=== PATIENT | female | born 1950 | race Caucasian/White ===

== ENCOUNTER 2017-03-28 06:46 | Observation (INO) | payer MEDICARE ==
[2017-03-28] VITALS (7 sets, daily range): BP systolic 112–135; BP diastolic 54–68; PULSE 53–95; RESP 14–18; TEMP 97.7–98.3; O2SAT 95–99
[~2017-03-28] VITALS: Ht 167.6 cm; Wt 68.8 kg
--- NOTE | 2017-03-28 07:26 | PD ---
HPI Chief Complaint: Injury Time Seen by Provider: 07:18 Travel History International Travel<30 days: No Contact w/Intl Traveler<30days: No Traveled to known affect area: No History of Present Illness HPI 66-year-old female here for evaluation of left fourth toe pain. The patient reports that about 5 days ago she dropped a steel car onto her toe. She reports that it did not bleed at the time of the injury, however he did develop a blister which she broke open and it released blood. She is concerned about possible infection to the toe. Pain is moderate, worse with palpation and movement. PFSH Past Medical History Diminished Hearing: No Tetanus Vaccination: Unknown Influenza Vaccination: No ?: Not Past Surgical History Hysterectomy: Yes Social History Alcohol Use: Yes (occ) Tobacco Use: No Substance Use: No Allergies-Medications (Allergen,Severity, Reaction): Coded Allergies: No Known Allergies (Unverified , 03/28/17) Reported Meds & Prescriptions Reported Meds & Active Scripts Active No Active Prescriptions or Reported Medications Review of Systems Except as stated in HPI: all other systems reviewed are Neg Physical Exam Narrative GENERAL: Well-developed, well-nourished, comfortable, no apparent distress. SKIN: Left fourth toe with diffuse swelling with slight ecchymosis as well as erythema and warmth, no red streaks, no crepitus, small healing abrasion to the dorsum of the toe. CARDIOVASCULAR: Regular rate and rhythm. Bilateral dorsalis pedis pulses are brisk and equal. MUSCULOSKELETAL: Left fourth toe with moderate diffuse swelling with skin exam as above. The left fourth toe is diffusely tender. Rest of the patient's foot and ankle are nontender without swelling or obvious deformity. NEUROLOGICAL: Awake and alert. No obvious cranial nerve deficits. Motor grossly within normal limits. Normal speech. PSYCHIATRIC: Appropriate mood and affect; insight and judgment normal. Data Data Last Documented VS Vital Signs Date Time Temp Pulse Resp B/P Pulse Ox O2 Delivery O2 Flow Rate FiO2 03/28/17 11:20 53 14 135/66 99 Room Air 03/28/17 07:05 98.3 Orders Foot, Complete ([id number]) (03/28/17 ) Basic Metabolic Panel (Bmp) (03/28/17 08:03) Complete Blood Count With Diff (03/28/17 08:03) Prothrombin Time / Inr (Pt) (03/28/17 08:03) Act Partial Throm Time (Ptt) (03/28/17 08:03) Iv Access Insert/Monitor (03/28/17 08:03) Ecg Monitoring (03/28/17 08:03) Oximetry (03/28/17 08:03) Sodium Chloride 0.9% Flush (Ns Flush) (03/28/17 08:15) Westergren Sedimentation Rate (03/28/17 08:03) C-Reactive Protein (Crp) (03/28/17 08:03) Blood Culture (03/28/17 08:03) Mri Foot W&W/O Contrast (03/28/17 ) Gadodiamide Pf Inj (Omniscan Pf Inj) (03/28/17 11:11) Vancomycin Inj (Vancomycin Inj) (03/28/17 11:45) Piperacil-Tazo 3.375 Gm Premix (Zosyn 3. (03/28/17 11:45) Labs Laboratory Tests Test 03/28/17 08:20 White Blood Count 6.8 TH/MM3 Red Blood Count 4.19 MIL/MM3 Hemoglobin 11.6 GM/DL Hematocrit 35.7 % Mean Corpuscular Volume 85.3 FL Mean Corpuscular Hemoglobin 27.8 PG Mean Corpuscular Hemoglobin 32.5 % Concent Red Cell Distribution Width 13.9 % Platelet Count 209 TH/MM3 Mean Platelet Volume 9.2 FL Neutrophils (%) (Auto) 51.4 % Lymphocytes (%) (Auto) 32.9 % Monocytes (%) (Auto) 7.2 % Eosinophils (%) (Auto) 8.1 % Basophils (%) (Auto) 0.4 % Neutrophils # (Auto) 3.6 TH/MM3 Lymphocytes # (Auto) 2.2 TH/MM3 Monocytes # (Auto) 0.5 TH/MM3 Eosinophils # (Auto) 0.5 TH/MM3 Basophils # (Auto) 0.0 TH/MM3 CBC Comment DIFF FINAL Differential Comment Erythrocyte Sedimentation Rate 8 mm/hr Prothrombin Time 10.7 SEC Prothromb Time International 1.0 RATIO Ratio Activated Partial 25.4 SEC Thromboplast Time Sodium Level 141 MEQ/L Potassium Level 3.8 MEQ/L Chloride Level 106 MEQ/L Carbon Dioxide Level 25.7 MEQ/L Anion Gap 9 MEQ/L Blood Urea Nitrogen 17 MG/DL Creatinine 0.65 MG/DL Estimat Glomerular Filtration 91 ML/MIN Rate Random Glucose 95 MG/DL Calcium Level 8.9 MG/DL C-Reactive Protein LESS THAN 0.29 MG/DL MDM Medical Decision Making Medical Screen Exam Complete: Yes Emergency Medical Condition: Yes Differential Diagnosis Toe fracture, subungual hematoma, contusion, cellulitis Narrative Course Vital signs reviewed. Left foot x-ray: CONCLUSION: 1. Soft tissue swelling of the fourth digit with multiple lucencies suggesting subacute fracture. 2. Possibility of underlying osteomyelitis cannot be excluded. Patient was made aware of x-ray findings and of plan for labs and MRI to evaluate for possible osteomyelitis. CBC shows WBC 6.8, hemoglobin 11.6, hematocrit 35.7, platelets 209. BMP is unremarkable. ESR is 8 CRP less than 0.29 MRI left foot: CONCLUSION: Complete marrow replacement of the fourth distal phalangeal bone with some surrounding soft tissue edema. The marrow replacement concerning if not diagnostic for osteomyelitis. ADDENDUM: I received more clinical history. The patient had a defined trauma without any open injury. The amount of bony edema in marrow placement certainly could be related to just a fracture. Without the open wound obviously infection would be much less likely. Discussed case with Dr Rojo. Case discussed with on-call auto body customizer Dr. Sheth. Patient will be admitted for IV antibiotics. He will see the patient in consultation. Patient made aware of all findings and plan for admission. She is amenable to this plan. Case discussed with hospitalist Dr. Newton will admit the patient to her service. Diagnosis Primary Impression: Toe osteomyelitis, left Admitting Information Admitting Physician Requests: Admit Scripts No Active Prescriptions or Reported Meds Ramin Rojo MD Mar 28, 2017 07:26
--- NOTE | 2017-03-28 07:54 | RADRPT ---
EXAM DATE/TIME: 03/28/2017 07:35 [facility] COMPARISON: No previous studies available for comparison. INDICATIONS : Left 4th digit pain and swelling, dropped a metal bar on foot 4 days ago. MEDICAL HISTORY : None. SURGICAL HISTORY : None. ENCOUNTER: Initial ACUITY: 4 - 6 days PAIN SCORE: 8/10 LOCATION: Left 4th digit FINDINGS: Three view examination of the left foot demonstrates soft tissue swelling the fourth digit. There are lucencies involving the distal phalanx suggesting fracture. No other abnormality. Scattered degenera tive changes in the foot. The calcaneus is intact. Bony mineralization is normal. CONCLUSION: 1. Soft tissue swelling of the fourth digit with multiple lucencies suggesting subacute fracture. 2. Possibility of underlying osteomyelitis cannot be excluded. Arun Shi MD on March 28, 2017 at 7:51 Board Certified Radiologist. This report was verified electronically.
[2017-03-28] MEDS ORDERED: SODIUM CHLORIDE 0.9% FLUSH 10 ML FLUSH IV FLUSH PRN (08:15)
[2017-03-28 08:49] LABS: AUTOMATED NEUTROPHIL # 3.6 TH/MM3 (1.8-7.7); BASOPHIL % 0.4 % (0.0-2.0); EOSINOPHIL # 0.5 TH/MM3 (0-0.4); EOSINOPHIL % 8.1 % (0.0-4.0); HEMATOCRIT 35.7 % (35.0-46.0); HEMO FLAGS DIFF FINAL; LYMPH % 32.9 % (9.0-44.0); LYMPHOCYTE # 2.2 TH/MM3 (1.0-4.8); MEAN CELL VOLUME 85.3 FL (80.0-100.0); MEAN CORPUSCULAR HEMOGLOBIN 27.8 PG (27.0-34.0); MEAN CORPUSCULAR HGB CONC 32.5 % (32.0-36.0); MONO % 7.2 % (0.0-8.0); NEUT % 51.4 % (16.0-70.0); PLATELET COUNT 209 TH/MM3 (150-450); RED BLOOD COUNT 4.19 MIL/MM3 (4.00-5.30); RED CELL DISTRIBUTION WIDTH 13.9 % (11.6-17.2); WHITE BLOOD COUNT 6.8 TH/MM3 (4.0-11.0)
[2017-03-28 08:59] LABS: CHLORIDE 106 MEQ/L (98-107); POTASSIUM 3.8 MEQ/L (3.5-5.1); SODIUM (NA) 141 MEQ/L (136-145)
[2017-03-28 09:01] LABS: ANION GAP 9 MEQ/L (5-15); APTT (PATIENT) 25.4 SEC (24.3-30.1); BICARBONATE 25.7 MEQ/L (21.0-32.0); BLOOD UREA NITROGEN 17 MG/DL (7-18); PROTHROMBIN TIME - PATIENT 10.7 SEC (9.8-11.6)
[2017-03-28 09:04] LABS: GLOMERULAR FILTRATION RATE 91 ML/MIN (>89)
[2017-03-28] MEDS ORDERED: GADODIAMIDE PF 287 MG/ML 5 ML VIAL (for RAD MRI) IV ONE (11:11)
--- NOTE | 2017-03-28 11:15 | RADRPT ---
EXAM DATE/TIME: 03/28/2017 10:23 This report includes an Addendum and supersedes previous reports for this exam. [facility] COMPARISON: No previous studies available for comparison. INDICATIONS : Osteomyelitis. Redness and swelling tip of 4th toe after dropping padilla on foot. CONTRAST: 14 cc Omniscan (gadodiamide) IV MEDICAL HISTORY : None. SURGICAL HISTORY : Hysterectomy. ENCOUNTER: Initial ACUITY: 3 day PAIN SCORE: 6/10 LOCATION: Left foot TECHNIQUE: Multiplanar, multisequence MRI examination was performed without contrast and after the intravenous a dministration of gadolinium. FINDINGS: BONE/CARTILAGE: There is complete marrow replacement of the fourth distal phalangeal.. Articular cartilage signal is within normal limits. Some edema in the medial sesamoid bone possible sesamoiditis. TENDONS: All of the visualized tendons are intact. MISCELLANEOUS: Plantar aponeurosis is intact. Sinus tarsi is within normal limits. POST-CONTRAST: There is marked enhancement of swelling around the fourth toe. CONCLUSION: Complete marrow replacement of the fourth distal phalangeal bone with some surrounding soft tissue ed segun. The marrow replacement concerning if not diagnostic for osteomyelitis. Albert Lemon MD on March 28, 2017 at 11:10 Board Certified Radiologist. This report was verified electronically. ADDENDUM: I received more clinical history. The patient had a defined trauma without any open injury. The amou nt of bony edema in marrow placement certainly could be related to just a fracture. Without the open wound obviously infection would be much less likely. Discussed case with Dr Rojo. Albert Lemon MD on March 28, 2017 at 11:30 Board Certified Radiologist. This report was verified electronically.
[2017-03-28] MEDS ORDERED: VANCOMYCIN INJ 1,000 MG in SODIUM CHLOR 0.9% 250 ML INJ 250 ML IV ONE (11:45)
[2017-03-28] MEDS ORDERED: PIPERACIL-TAZO 3.375 GM PREMIX 50 ML IV ONE (11:45)
[2017-03-28] MEDS ORDERED: ACETAMINOPHEN 325 MG TAB PO PRN (12:45)
--- NOTE | 2017-03-28 14:44 | HHI.HP ---
HPI Service [facility] Primary Care Physician Manjinder Cook, DO Admission Diagnosis left fourth toe injury, rule out osteomyelitis Diagnoses: Chief Complaint: Left fourth toe injury Travel History International Travel<30 Days: No Contact w/Intl Traveler <30 Da: No Traveled to Known Affected Are: No History of Present Illness This patient is a 66-year-old female with minimal past history who dropped a still leti on her toe 5 days ago. She had significant black and blue cleaning of the foot and of the toe however the fourth toe has continued to enlarge and has become quite erythematous and edematous. The pain is moderate and worse with ambulation and worse with trying to move the foot. There is been no fevers or chills. There is no open cleaning on the foot and in fact the previous ecchymotic area has all but healed completely. The patient has never had any bone infection and is not a diabetic. She did have significant bony changes on MRI which could represent osteomyelitis although unlikely and more likely a fracture in various stages of healing. Patient has been recommended by podiatry for further observation due to the significant changes in the foot. Review of Systems Constitutional: DENIES: Diaphoretic episodes, Fatigue, Fever, Weight gain, Weight loss, Chills, Dizziness, Change in appetite, Night Sweats Endocrine: DENIES: Abnorml menstrual pattern, Heat/cold intolerance, Polydipsia , Polyuria, Polyphagia Eyes: DENIES: Blurred vision, Diplopia, Eye inflammation, Eye pain, Vision loss , Photosensitivity, Double Vision Ears, nose, mouth, throat: DENIES: Tinnitus, Hearing loss, Vertigo, Nasal discharge, Oral lesions, Throat pain, Hoarseness, Ear Pain, Running Nose, Epistaxis, Sinus Pain, Toothache, Odynophagia Respiratory: DENIES: Apneas, Cough, Snoring, Wheezing, Hemoptysis, Sputum production, Shortness of breath Cardiovascular: DENIES: Chest pain, Palpitations, Syncope, Dyspnea on Exertion , PND, Lower Extremity Edema, Orthopnea, Claudication Gastrointestinal: DENIES: Abdominal pain, Black stools, Bloody stools, Constipation, Diarrhea, Nausea, Vomiting, Difficulty Swallowing, Anorexia Genitourinary: DENIES: Abnormal vaginal bleeding, Dysmenorrhea, Dyspareunia, Sexual dysfunction, Urinary frequency, Urinary incontinence, Urgency, Hematuria , Dysuria, Nocturia, Vaginal discharge Musculoskeletal: COMPLAINS OF: Joint pain, Joint Swelling Integumentary: DENIES: Abnormal pigmentation, Pruritus, Rash, Nail changes, Breast masses, Breast skin changes, Nipple discharge Immunologic/allergic: DENIES: Eczema, Urticaria Neurologic: DENIES: Abnormal gait, Headache, Localized weakness, Paresthesias, Seizures, Speech Problems, Tremor, Poor Balance Psychiatric: DENIES: Anxiety, Confusion, Mood changes, Depression, Hallucinations, Agitation, Suicidal Ideation, Homicidal Ideation, Delusions Past Family Social History Past Medical History Denies Past Surgical History Hysterectomy Reported Medications Denies Allergies: Coded Allergies: No Known Allergies (Unverified , 03/28/17) Active Ordered Medications Reviewed in the medical record Family History Hypertension Social History No tobacco, lives with her , occasional alcohol Physical Exam Vital Signs Vital Signs Date Time Temp Pulse Resp B/P Pulse Ox O2 Delivery O2 Flow Rate FiO2 03/28/17 14:10 95 16 114/55 95 Room Air 03/28/17 11:20 53 14 135/66 99 Room Air 03/28/17 08:35 16 99 Room Air 03/28/17 07:30 16 99 Room Air 03/28/17 07:05 98.3 60 16 133/68 98 Room Air 03/28/17 06:53 98.3 60 18 98 Physical Exam GENERAL: This is a well-nourished, well-developed patient, in no apparent distress. SKIN: No rashes, ecchymoses or lesions. Cool and dry. HEAD: Atraumatic. Normocephalic. No temporal or scalp tenderness. EYES: Pupils equal round and reactive. Extraocular motions intact. No scleral icterus. No injection or drainage. ENT: Nose without bleeding, purulent drainage or septal hematoma. Throat without erythema, tonsillar hypertrophy or exudate. Uvula midline. Airway patent. NECK: Trachea midline. No JVD or lymphadenopathy. Supple, nontender, no meningeal signs. CARDIOVASCULAR: Regular rate and rhythm without murmurs, gallops, or rubs. RESPIRATORY: Clear to auscultation. Breath sounds equal bilaterally. No wheezes , rales, or rhonchi. GASTROINTESTINAL: Abdomen soft, non-tender, nondistended. No hepato-splenomegaly , or palpable masses. No guarding. MUSCULOSKELETAL: Left fourth toe with significant erythema and edema decreased mobility, other Extremities without clubbing, cyanosis, or edema. No joint tenderness, effusion, or edema noted. No calf tenderness. Negative Homans sign bilaterally. NEUROLOGICAL: Awake and alert. Cranial nerves II through XII intact. Motor and sensory grossly within normal limits. Five out of 5 muscle strength in all muscle groups. Normal speech. Laboratory Laboratory Tests Test 03/28/17 08:20 White Blood Count 6.8 Red Blood Count 4.19 Hemoglobin 11.6 Hematocrit 35.7 Mean Corpuscular Volume 85.3 Mean Corpuscular Hemoglobin 27.8 Mean Corpuscular Hemoglobin 32.5 Concent Red Cell Distribution Width 13.9 Platelet Count 209 Mean Platelet Volume 9.2 Neutrophils (%) (Auto) 51.4 Lymphocytes (%) (Auto) 32.9 Monocytes (%) (Auto) 7.2 Eosinophils (%) (Auto) 8.1 Basophils (%) (Auto) 0.4 Neutrophils # (Auto) 3.6 Lymphocytes # (Auto) 2.2 Monocytes # (Auto) 0.5 Eosinophils # (Auto) 0.5 Basophils # (Auto) 0.0 CBC Comment DIFF FINAL Differential Comment Erythrocyte Sedimentation Rate 8 Prothrombin Time 10.7 Prothromb Time International 1.0 Ratio Activated Partial 25.4 Thromboplast Time Sodium Level 141 Potassium Level 3.8 Chloride Level 106 Carbon Dioxide Level 25.7 Anion Gap 9 Blood Urea Nitrogen 17 Creatinine 0.65 Estimat Glomerular Filtration 91 Rate Random Glucose 95 Calcium Level 8.9 C-Reactive Protein LESS THAN 0.29 Date/Time Procedure Status Source Growth 03/28/17 08:25 Aerobic Blood Culture Received Blood Peripheral Pending 03/28/17 08:25 Anaerobic Blood Culture Received Blood Peripheral Pending Result Diagram: 03/28/1781903/28/17819 Imaging Last Impressions Foot X-Ray 03/28/17 0000 Signed Impressions: Service Date/Time: Tuesday, March 28, 2017 07:35 - CONCLUSION: 1. Soft tissue swelling of the fourth digit with multiple lucencies suggesting subacute fracture. 2. Possibility of underlying osteomyelitis cannot be excluded. Arun Shi MD Foot MRI 03/28/17 0000 Signed Impressions: Service Date/Time: Tuesday, March 28, 2017 10:23 - CONCLUSION: Complete marrow replacement of the fourth distal phalangeal bone with some surrounding soft tissue edema. The marrow replacement concerning if not diagnostic for osteomyelitis. Albert Lemon MD ADDENDUM: I received more clinical history. The patient had a defined trauma without any open injury. The amount of bony edema in marrow placement certainly could be related to just a fracture. Without the open wound obviously infection would be much less likely. Discussed case with Dr Rojo. Albert Lemon MD Assessment and Plan Problem List: (1) Toe injury ICD Code: S99.929A Status: Acute Plan: Likely MRI findings aren't related to injury and not a true infection. We'll continue with empiric antibiotics overnight and follow clinically Podiatry consult pending Patient's pain is well-controlled Assessment and Plan Plan of care to be determined by Hospital course Code Status Full code Discussed Condition With Patient, Evelyne Felix M.D., MD Mar 28, 2017 14:44
[2017-03-28] MEDS ORDERED: VANCOMYCIN INJ 1,000 MG in SODIUM CHLOR 0.9% 250 ML INJ 250 ML IV SCH (14:45)
[2017-03-28] MEDS ORDERED: Vancomycin Consult Pharmacy 1 EA OTHER SCH (16:00)
[2017-03-28] MEDS ORDERED: cefTRIAXone INJ 1,000 MG in SODIUM CHLORIDE 0.9% INJ 100 ML IV SCH (16:00)
--- NOTE | 2017-03-28 19:43 | MB ---
cc: EPI NIEVES DPM DATE OF CONSULTATION 03/28/2017 REASON FOR CONSULTATION Left fourth toe infection, possible osteomyelitis versus fracture. HISTORY OF THE PRESENT ILLNESS This is a 66-year-old female who dropped a weight on her foot approximately 5-7 days ago. She had some black and blue but it became more red and she became very worrisome. She presented to the ED and she was worked up appropriately. It was the determination that she may have a cellulitic versus an osteomyelitic event. Currently I am seeing the patient bedside. She has noted significant improvement upon just receiving one dose of antibiotic. She denies any puncture wound to the area. PAST MEDICAL HISTORY None listed although she has a surgical history of hysterectomy. MEDICATIONS Reported medications, none listed. ALLERGIES None. FAMILY HISTORY Hypertension. SOCIAL HISTORY No tobacco. She lives with her . Occasional alcohol. INPATIENT MEDICATIONS: She is receivin. Vancomycin. 2. Ceftriaxone. 3. And apparently Zosyn. PHYSICAL EXAMINATION VITAL SIGNS: Temperature 98.3, pulse rate 61, respiratory rate 16, blood pressure 112/54. She is sating 98% on room air. GENERAL: This is an alert and oriented female seen bedside exhibiting nonlabored respirations. She is verbal, appropriate. EXTREMITIES: The left lower extremity is examined. There is noted to be erythema that is isolated to the distal tip of the fourth digit. It appears to be without fluctuance. There is mild pain. There is no crepitus or instability. There is no open or draining wound. Pedal pulses are fully palpable. Sensation is intact. Contralateral extremity is noted to be free from any obvious pathology. LABORATORY FINDINGS White blood cell 6.8. Hemoglobin/hematocrit 11/35. Platelet count is 209. ESR is 8. Chem-7, sodium 141, potassium 3.8, chloride 106, CO2 is 25.7, BUN is 17, creatinine 0.65, random glucose is 95. C-reactive protein is less than 0.29. IMAGING Imaging findings, there is noted to be complete marrow replacement of the distal phalanx. It appears to correlate more clinically with a fracture as opposed to osteomyelitis. X-ray findings are similar. ASSESSMENT/PLAN Left fourth digit distal phalanx fracture with possible cellulitis. I reviewed in great detail the studies and the laboratory findings. The patient likely had a cellulitic event that appears to be improving. My recommendation is 24 hours of antibiotics IV and if there is significant improvement by noon tomorrow, I am recommending DC on empiric antibiotics such as Clindamycin and Cipro and to follow up outpatient in the clinic. I do not feel the patient needs bone biopsy or any advanced surgical procedure to determine the extent of infection. Please feel free to discharge in a.m. if the patient's clinical findings improve. DENISE Ibrahim/VALERIE /5:51 PM /8:06 AM
[2017-03-29] VITALS: BP 106/64; PULSE 74; RESP 16; TEMP 97.8; O2SAT 98
[2017-03-29] MEDS ORDERED: VANCOMYCIN INJ 1,400 MG in SODIUM CHLORID 0.9% 500 ML INJ 500 ML IV SCH (02:00)
[2017-03-29 06:20] LABS: AUTOMATED NEUTROPHIL # 2.9 TH/MM3 (1.8-7.7); BASOPHIL % 0.6 % (0.0-2.0); EOSINOPHIL # 0.7 TH/MM3 (0-0.4); EOSINOPHIL % 10.3 % (0.0-4.0); HEMATOCRIT 34.2 % (35.0-46.0); HEMO FLAGS DIFF FINAL; LYMPHOCYTE # 2.6 TH/MM3 (1.0-4.8); MEAN CELL VOLUME 85.6 FL (80.0-100.0); MEAN CORPUSCULAR HEMOGLOBIN 27.5 PG (27.0-34.0); MEAN CORPUSCULAR HGB CONC 32.2 % (32.0-36.0); MONO % 6.7 % (0.0-8.0); NEUT % 42.4 % (16.0-70.0); PLATELET COUNT 204 TH/MM3 (150-450); RED BLOOD COUNT 3.99 MIL/MM3 (4.00-5.30); RED CELL DISTRIBUTION WIDTH 13.9 % (11.6-17.2); WHITE BLOOD COUNT 6.6 TH/MM3 (4.0-11.0)
[2017-03-29 06:28] LABS: POTASSIUM 4.3 MEQ/L (3.5-5.1)
[2017-03-29 06:32] LABS: BICARBONATE 28.3 MEQ/L (21.0-32.0)
--- NOTE | 2017-03-29 06:41 | PD.POD.CON ---
Patient Intake Consult Requested by Primary Care Physician Manjinder Cook, DO Coded Allergies: No Known Allergies (Unverified , 03/28/17) Vital Signs Date Time Temp Pulse Resp B/P Pulse Ox O2 Delivery O2 Flow Rate FiO2 03/29/17 00:00 97.8 74 16 106/64 98 03/28/17 20:00 97.7 62 18 112/68 98 03/28/17 15:45 61 16 112/54 98 Room Air 03/28/17 14:10 95 16 114/55 95 Room Air 03/28/17 11:20 53 14 135/66 99 Room Air 03/28/17 08:35 16 99 Room Air 03/28/17 07:30 16 99 Room Air 03/28/17 07:05 98.3 60 16 133/68 98 Room Air 03/28/17 06:53 98.3 60 18 98 Lab and Radiology Results Radiology Last Impressions Foot X-Ray 03/28/17 0000 Signed Impressions: Service Date/Time: Tuesday, March 28, 2017 07:35 - CONCLUSION: 1. Soft tissue swelling of the fourth digit with multiple lucencies suggesting subacute fracture. 2. Possibility of underlying osteomyelitis cannot be excluded. Arun Shi MD Foot MRI 03/28/17 0000 Signed Impressions: Service Date/Time: Tuesday, March 28, 2017 10:23 - CONCLUSION: Complete marrow replacement of the fourth distal phalangeal bone with some surrounding soft tissue edema. The marrow replacement concerning if not diagnostic for osteomyelitis. Albert Lemon MD ADDENDUM: I received more clinical history. The patient had a defined trauma without any open injury. The amount of bony edema in marrow placement certainly could be related to just a fracture. Without the open wound obviously infection would be much less likely. Discussed case with Dr Rojo. Albert Lemon MD Assessment/Plan Additional Plans & Procedures FULL CONSULT WAS DICTATED- Checked to sign this AM and was blank- I will look into belt fixer. Left 4th digit distal phalanx fx with cellulitis. IV ABX over night, doubt OM. If redness improved by AM, DC on Cipro/ Cleocin and FU outpt. Dr Mccarty to check this AM. Elian Sheth DPM Mar 29, 2017 06:41
[2017-03-29 08:00] VITALS: BP 116/71; PULSE 57; RESP 18; TEMP 96.5; O2SAT 97
--- NOTE | 2017-03-29 08:31 | PD.POD ---
Subjective Podiatric Problems Left 4th digit fracture with cellulitis. Pain scale used: 0-10 numeric scale Pain score: 1 Past Med/Surg/Social History Social History Smoking Status: Never Smoker Objective Vital Signs Vital Signs Date Time Temp Pulse Resp B/P Pulse Ox O2 Delivery O2 Flow Rate FiO2 03/29/17 00:00 97.8 74 16 106/64 98 03/28/17 20:00 97.7 62 18 112/68 98 03/28/17 15:45 61 16 112/54 98 Room Air 03/28/17 14:10 95 16 114/55 95 Room Air 03/28/17 11:20 53 14 135/66 99 Room Air 03/28/17 08:35 16 99 Room Air Coded Allergies: No Known Allergies (Unverified , 03/28/17) Other Results Laboratory Tests Test 03/28/17 03/29/17 08:20 04:57 Erythrocyte Sedimentation Rate 8 mm/hr Prothrombin Time 10.7 SEC Prothromb Time International 1.0 RATIO Ratio Activated Partial 25.4 SEC Thromboplast Time C-Reactive Protein LESS THAN 0.29 MG/DL White Blood Count 6.6 TH/MM3 Red Blood Count 3.99 MIL/MM3 Hemoglobin 11.0 GM/DL Hematocrit 34.2 % Mean Corpuscular Volume 85.6 FL Mean Corpuscular Hemoglobin 27.5 PG Mean Corpuscular Hemoglobin 32.2 % Concent Red Cell Distribution Width 13.9 % Platelet Count 204 TH/MM3 Mean Platelet Volume 9.3 FL Neutrophils (%) (Auto) 42.4 % Lymphocytes (%) (Auto) 40.0 % Monocytes (%) (Auto) 6.7 % Eosinophils (%) (Auto) 10.3 % Basophils (%) (Auto) 0.6 % Neutrophils # (Auto) 2.9 TH/MM3 Lymphocytes # (Auto) 2.6 TH/MM3 Monocytes # (Auto) 0.4 TH/MM3 Eosinophils # (Auto) 0.7 TH/MM3 Basophils # (Auto) 0.0 TH/MM3 CBC Comment DIFF FINAL Differential Comment Sodium Level 145 MEQ/L Potassium Level 4.3 MEQ/L Chloride Level 110 MEQ/L Carbon Dioxide Level 28.3 MEQ/L Anion Gap 7 MEQ/L Blood Urea Nitrogen 13 MG/DL Creatinine 0.66 MG/DL Estimat Glomerular Filtration 89 ML/MIN Rate Random Glucose 86 MG/DL Calcium Level 8.5 MG/DL Exam-Podiatry Dermatological Exam Ulcers: Location/Measurements LLE Left 4th digit, reduced erythema, no drainage. No pain with ROM. NVS intact. Assessment & Plan Diagnosis: (1) Toe injury Status: Acute A/P Reduced erythema. Doing well OK to d/c home with post op shoes. OK with Cipro 250 bid x 10 days. OK with Clindamycin 150 bid x 10 days. OK to WB. F/U with Dr Sheth on 04/01/17 Romana Mccarty DPM Mar 29, 2017 08:30
[2017-03-29] MEDS ORDERED: PNEUMOCOCCAL POLYVALENT INJ 25 MCG/0.5 ML SYR IM ONE (10:00)
--- NOTE | 2017-03-29 10:25 | HHI.DCPOC ---
Discharge Care Plan Diagnosis: (1) Toe injury Goals to Promote Your Health * To prevent worsening of your condition and complications * To maintain your health at the optimal level Directions to Meet Your Goals Take your medications as prescribed Follow your dietary instruction Follow activity as directed Keep your appointments as scheduled Take your immunizations and boosters as scheduled If your symptoms worsen call your PCP, if no PCP go to Urgent Care Center or Emergency Room Smoking is Dangerous to Your Health. Avoid second hand smoke Call the 24-hour hour crisis hotline for domestic abuse at Evelyne Newton MD Mar 29, 2017 10:25
[2017-03-29] MEDS ORDERED: CIPR250T52 PO (10:29)
[2017-03-29] MEDS ORDERED: CLIN1CAP5 PO (10:29)
--- NOTE | 2017-03-29 10:29 | HHI.DS ---
Discharge Summary Admission Date Mar 28, 2017 at 12:06 Discharge Date: Mar 29, 2017 Admitting Diagnosis left fourth toe injury, rule out osteomyelitis (1) Toe injury ICD Code: S99.929A Procedures none Brief History - From Admission This patient is a 66-year-old female with minimal past history who dropped a still leti on her toe 5 days ago. She had significant black and blue cleaning of the foot and of the toe however the fourth toe has continued to enlarge and has become quite erythematous and edematous. The pain is moderate and worse with ambulation and worse with trying to move the foot. There is been no fevers or chills. There is no open cleaning on the foot and in fact the previous ecchymotic area has all but healed completely. The patient has never had any bone infection and is not a diabetic. She did have significant bony changes on MRI which could represent osteomyelitis although unlikely and more likely a fracture in various stages of healing. Patient has been recommended by podiatry for further observation due to the significant changes in the foot. CBC/BMP: 03/29/17 0457 03/29/17 0457 Significant Findings Laboratory Tests Test 03/28/17 03/29/17 08:20 04:57 Eosinophils (%) (Auto) 8.1 % (0.0-4.0) 10.3 % (0.0-4.0) Eosinophils # (Auto) 0.5 TH/MM3 0.7 TH/MM3 (0-0.4) (0-0.4) Red Blood Count 3.99 MIL/MM3 (4.00-5.30) Hemoglobin 11.0 GM/DL (11.6-15.3) Hematocrit 34.2 % (35.0-46.0) Chloride Level 110 MEQ/L (98-107) Imaging Last Impressions Foot X-Ray 03/28/17 0000 Signed Impressions: Service Date/Time: Tuesday, March 28, 2017 07:35 - CONCLUSION: 1. Soft tissue swelling of the fourth digit with multiple lucencies suggesting subacute fracture. 2. Possibility of underlying osteomyelitis cannot be excluded. Arun Shi MD Foot MRI 03/28/17 0000 Signed Impressions: Service Date/Time: Tuesday, March 28, 2017 10:23 - CONCLUSION: Complete marrow replacement of the fourth distal phalangeal bone with some surrounding soft tissue edema. The marrow replacement concerning if not diagnostic for osteomyelitis. Albert Lemon MD ADDENDUM: I received more clinical history. The patient had a defined trauma without any open injury. The amount of bony edema in marrow placement certainly could be related to just a fracture. Without the open wound obviously infection would be much less likely. Discussed case with Dr Rojo. Albert Lemon MD PE at Discharge GENERAL: This is a well-nourished, well-developed patient, in no apparent distress. CARDIOVASCULAR: Regular rate and rhythm without murmurs, gallops, or rubs. RESPIRATORY: Clear to auscultation. Breath sounds equal bilaterally. No wheezes , rales, or rhonchi. GASTROINTESTINAL: Abdomen soft, non-tender, nondistended. Normal active bowel sounds MUSCULOSKELETAL: erythema in toe unchanged. Extremities without clubbing, cyanosis, or edema. NEURO: Alert & Oriented x4 to person, place, time, situation. Moves all ext x4 Pt update on day of discharge Patient seen today in follow-up for left fourth digit injury and erythema. No new complaints today. Podiatry evaluation appreciated. Patient will continue with antibiotics and outpatient follow-up Hospital Course Patient is a 66-year-old female was evaluated for left toe injury and had some residual erythema and swelling. Images were concerning for osteomyelitis however patient does not appear to have osteomyelitis but severe toe injury. Continue with antibiotics empirically and follow for outpatient management per podiatry Pt Condition on Discharge: Good Discharge Disposition: Discharge Home Discharge Time: > 30 minutes Discharge Instructions Follow up Referrals: Podiatry - 04/01/17 with Elian Sheth DPM New Medications: Ciprofloxacin (Cipro) 250 Mg Tab 250 MG PO BID Infection #20 Ref 0 TAB Clindamycin (Clindamycin) 150 Mg Cap 150 MG PO BID Infection #20 Ref 0 Evelyne Pettit MD Mar 29, 2017 10:29
[2017-03-31] MEDS ORDERED: VANCOMYCIN TROUGH ONE (07:45)
== END 2017-03-29 11:05 | disposition home or self-care (01) ==
LOC: PHED 06:46 → PHEDA 12:06 → PHEDH 16:06 → PH3A 19:55
PROVIDERS: ADMIT Hospitalist; ATTEND Hospitalist
DX: S92.532A Displaced fracture of distal phalanx of left lesser toe(s), initial encounter for closed fracture (principal); L03.032 Cellulitis of left toe; W22.8XXA Striking against or struck by other objects, initial encounter
CPT/HCPCS: 73630; 73720; 80048; 85025; 85610; 85652; 85730; 86140; 87040; 99285; A9579; G0378; J0696; J2543; J3370; J7040; J7050; L3260